=== PATIENT | male | born 1970 | race Caucasian/White ===

== ENCOUNTER 2017-05-17 03:36 | Emergency (ER) | payer OTHER ==
[2017-05-17 03:44] VITALS: RESP 18
--- NOTE | 2017-05-17 04:16 | EDPHY ---
H & P Stated Complaint: finger lac to right middle finger HPI/ROS: HPI CHIEF COMPLAINT: Laceration right 3th digit palmar aspect. HISTORY OF PRESENT ILLNESS: This patient very pleasant 46-year-old male, otherwise healthy no significant medical history does not take any daily medications presents emergency room with a laceration to the palmar aspect distal aspect 3th digit. It horizontally oriented. It is located that the IP. It is 3 cm in horizontal length. He states he sustained this while falling in the shower. He denies any other areas of injury. He thinks he may have hyperextended his finger leading to this laceration. Has localized pain. Patient tells me his tetanus shot is up-to-date. Past Medical History: No medical history Past Surgical History: No surgical history Social History: Denies daily use drugs alcohol tobacco products. Family History: Noncontributory ROS REVIEW OF SYSTEMS: A comprehensive 10 point review of systems is otherwise negative aside from elements mentioned in the history of present illness. Exam Constitutional triage nursing summary reviewed, vital signs reviewed, awake/ alert. Eyes normal conjunctivae and sclera, EOMI, PERRLA. HENT normal inspection, atraumatic, moist mucus membranes, no epistaxis, neck supple/ no meningismus, no raccoon eyes. Respiratory clear to auscultation bilaterally, normal breath sounds, no respiratory distress, no wheezing. Cardiovascular rate normal, regular rhythm, no murmur, no edema, distal pulses normal. Gastrointestinal soft, non-tender, no rebound, no guarding, normal bowel sounds, no distension, no pulsatile mass. Genitourinary no CVA tenderness. Musculoskeletal right hand: 3th digit palmar aspect horizontal laceration 3 cm in horizontal length, distal PIP joint. No tendon involvement. No arterial injury. Full range of motion. Neurovascular intact. Good cap refill. Normal sensation. no midline vertebral tenderness, full range of motion, no calf swelling, no tenderness of extremities, no meningismus, good pulses, neurovascularly intact. Skin pink, warm, & dry, no rash, skin atraumatic. Neurologic awake, alert and oriented x 3, AAOx3, moves all 4 extremities equally, motor intact, sensory intact, CN II-XII intact, normal cerebellar, normal vision, normal speech. Psychiatric normal mood/affect. Heme/Lymph/Immune no lymphadenopathy. Differential Diagnosis: Includes but is not limited to in a particular order 4th finger laceration, dislocation, dislocation causing laceration, fracture Medical Decision Making: Plan for this patient x-ray 3th digit. Tetanus shot is already up-to-date. Local anesthetic, washout wound, repair with sutures. Finger splint. Re-evaluation: X-ray has been reviewed. No fracture. No malalignment. 3rd digit. Laceration Repair Procedure: Verbal Consent was obtained, Under sterile conditions, The patient had lidocaine with epinephrine used approximately 3ccs to local anesthetize the 3cm horizontal palmar lac to 3rd digit, at dip. . The wound was copiously irrigated with sterile fluid, the wound was explored for foreign bodies there were non visualized, the wound was explored with a sterile glove to the base. There are no deep structures involved, including no arterial injury. THREE 5.O PROLENE interrupted Sutures were placed in this patient's laceration. He had good close approximation of the wound edges. He Tolerated this well. Patient understands keep the wound clean, dry, protected. He is neurovascularly intact. Warm soapy water soaks pain 24 hours. Source: Patient - Personal History Current Tetanus Diphtheria and Acellular Pertussis (TDAP): Yes Tetanus Vaccine Date: 2011 - Medical/Surgical History Hx Asthma: No Hx Chronic Respiratory Disease: No Hx Diabetes: No Hx Cardiac Disease: No Hx Renal Disease: No Hx Cirrhosis: No Hx Alcoholism: No Hx HIV/AIDS: No Hx Splenectomy or Spleen Trauma: No Other PMH: wisdom teeth, ing. hernia, tonsilectomy, GERD, bleeding gastric ulcer , duodnal ulcer - Social History Smoking Status: Never smoked Constitutional: Initial Vital Signs Temperature (C) 36.9 C 05/17/17 03:39 Heart Rate 90 05/17/17 03:39 Respiratory Rate 18 05/17/17 03:39 Blood Pressure 144/98 H 05/17/17 03:39 O2 Sat (%) 98 05/17/17 03:39 O2 Delivery Mode Room Air Allergies/Adverse Reactions: amoxicillin Allergy (Verified 05/17/17 03:38) NSAIDS (Non-Steroidal Anti-Inflamma Allergy (Verified 05/17/17 03:43) Home Medications: Medication Instructions Recorded [facility] 05/17/17 Departure - Departure Disposition: Home, Routine, Self-Care Clinical Impression: Laceration Condition: Good Instructions: Care For Your Stitches (ED), Laceration (ED) Additional Instructions: 1.Watch for signs of infection 2. Keep your wound clean, dry, protected and intact. 3. Sutures need to be removed in 12 days. 4. Stay in your splint for comfort.
[2017-05-17 05:26] VITALS: BP 151/91; PULSE 77; TEMP 97.9; O2SAT 94
== END 2017-05-17 05:25 | disposition home or self-care (01) ==
PROC: 0HQFXZZ Repair Right Hand Skin, External Approach (ICD-10-PCS; principal; 2017-05-17)
DX: S61.411A Laceration without foreign body of right hand, initial encounter (principal); W18.2XXA Fall in (into) shower or empty bathtub, initial encounter